=== PATIENT | female | born 1970 ===

== ENCOUNTER 2024-01-06 11:12 | Outpatient (OUT) | payer OTHER, SELFPAY ==
--- NOTE | 2024-01-06 | XR_ITS ---
[address] [address] Patient Name: KARIE HERNANDEZ MRN: [id number] date: 1970 Sex: F Assigned Patient Location: Current Patient Location: Accession/Order Number: [id number] Exam Date: 01/06/2024 11:20 Report Date: 01/08/2024 04:49 At the request of: SANNA BOWSER Procedure: XR knee RT 4V PROCEDURE: XR knee RT 4V HISTORY: RIGHT KNEE PAIN COMPARISON: None. FINDINGS: BONES:Marked narrowing of medial joint space with near [id number] articulation. Degenerative osteophytes along the articular margins of all 3 compartments. No fracture or dislocation. SOFT TISSUES:No visible soft tissue swelling. EFFUSION:Small joint effusion. OTHER: Negative. XR/XR knee RT 4V IMPRESSION: 1. Marked degenerative joint disease. 2. No acute abnormality. Electronically authenticated by: SANNA PHOENIX Date: 01/08/2024 04:49
== END 2024-01-06 11:13 | disposition home or self-care (01) ==
LOC: EC 11:12
PROVIDERS: Visit Provider Orthopaedic Surgery
DX: S83.91XA Sprain of unspecified site of right knee, initial encounter (principal)
CPT/HCPCS: 73564